=== PATIENT | female | born 1950 | race Two or more races ===

== ENCOUNTER 2019-05-11 08:55 | Outpatient (CLI) | payer OTHER ==
[~2019-05-11] VITALS: Ht 149.9 cm; Wt 77.6 kg
[2019-05-11] MEDS ORDERED: LOSARTAN POTASS50 MG ORAL (12:19)
[2019-05-11] MEDS ORDERED: ATORVASTATIN CA20 MG ORAL (12:19)
[2019-05-11] MEDS ORDERED: PANTOPRAZOLE SO40 MG ORAL (12:19)
[2019-05-11] MEDS ORDERED: ZOFRAN4 M3 ORAL (12:19)
[2019-05-11] MEDS ORDERED: TRIAMTERENE-HC1 EAC7 ORAL (12:19)
[2019-05-11] MEDS ORDERED: GLEEVEC100 MG ORAL (12:19)
[2019-05-11 12:22] VITALS: BP 134/59
--- NOTE | 2019-05-11 15:30 | Consultation ---
DATE OF CONSULTATION: 05/11/2019 CHIEF COMPLAINT: History of gastric ulcer. The patient was referred to us for repeat endoscopy and colonoscopy. At this time, patient is asymptomatic. PAST MEDICAL HISTORY: 1. Perforated gastric ulcer. 2. Cancer. 3. Hypertension. 4. GERD. 5. UTI. 6. Colitis. PAST SURGICAL HISTORY: Hysterectomy, partial gastrectomy. MEDICATIONS: Please see medication reconciliation list. FAMILY HISTORY: Noncontributory. SOCIAL HISTORY: The patient denies any tobacco, alcohol, or drug abuse. ALLERGIES: No known drug allergies. REVIEW OF SYSTEMS: Positive for on an off abdominal pain, GERD, bloating. PHYSICAL EXAMINATION: VITAL SIGNS: Temperature 98.8, blood pressure is 134/59, pulse is 66, respirations 20. HEENT: Normocephalic and atraumatic. Sclerae anicteric. NECK: Supple. No evidence of obvious lymphadenopathy. CARDIOVASCULAR: Regular rate and rhythm. Plus S1 and S2. No obvious murmur. LUNGS: Clear to auscultation bilaterally. ABDOMEN: Soft. There is a scar from prior abdominal surgeries. No rebound. No guarding. No peritoneal sign. EXTREMITIES: No cyanosis, no clubbing, no edema. ASSESSMENT AND PLAN: The patient is a 69-year-old female with history of perforated gastric ulcer, cancer actually currently on treatment. Oncologist wanted her to have endoscopy and colonoscopy. We are going to go ahead and get authorization for both. The patient was given instruction and preparation for colonoscopy and we are going to plan when authorization is obtained. Andrew Shepard M.D. DR: Hung JOB#: [id number] CC:
== END 2019-05-11 10:55 | disposition home or self-care (01) ==
LOC: PAN 08:55
DX: K25.9 Gastric ulcer, unspecified as acute or chronic, without hemorrhage or perforation (principal); R10.9 Unspecified abdominal pain; K21.9 Gastro-esophageal reflux disease without esophagitis; R14.0 Abdominal distension (gaseous); I10 Essential (primary) hypertension; Z85.89 Personal history of malignant neoplasm of other organs and systems